=== PATIENT | female | born 1995 | race Caucasian/White ===

== ENCOUNTER 2017-11-25 10:53 | Emergency (ER) | payer MEDICAID, OTHER ==
[~2017-11-25] VITALS: Ht 165.1 cm; Wt 97.0 kg
[~2017-11-25 10:53] MED LIST: HYDR-3534 PO
[2017-11-25 11:17] VITALS: BP 139/72; PULSE 115; RESP 18; TEMP 98.6; O2SAT 98
[2017-11-25] MEDS ORDERED: KETOROLAC TROMETHAMINE 60 MG/2 ML (IM) VIAL IM ONE (11:45)
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
[2017-11-25] MEDS ORDERED: CYCL10TA PO (12:12)
[2017-11-25] MEDS ORDERED: TRAM50 PO (12:12)
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
== END 2017-11-25 13:31 | disposition home or self-care (01) ==
LOC: NEPD 10:53
DX: S16.1XXA Strain of muscle, fascia and tendon at neck level, initial encounter (principal); S39.012A Strain of muscle, fascia and tendon of lower back, initial encounter; V89.2XXA Person injured in unspecified motor-vehicle accident, traffic, initial encounter
CPT/HCPCS: 72125; 72128; 72131; 96372; 99283; J1885

== ENCOUNTER 2017-11-27 10:36 | Emergency (ER) | payer MEDICAID, OTHER ==
[~2017-11-27] VITALS: Ht 165.1 cm; Wt 98.0 kg
[~2017-11-27 10:36] MED LIST changes: +CYCL10TA PO; +TRAM50 PO
[2017-11-27 11:00] VITALS: BP 135/71; PULSE 74; RESP 16; TEMP 98.1; O2SAT 100
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
[2017-11-27 12:12] VITALS: BP 123/73; PULSE 74; RESP 16; O2SAT 100
[2017-11-27] MEDS ORDERED: KETOROLAC TROMETHAMINE 60 MG/2 ML (IM) VIAL IM ONE (12:15)
[2017-11-27 12:32] VITALS: BP 114/48; PULSE 71; RESP 16; O2SAT 98
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
[2017-11-27] MEDS ORDERED: ZOFR4TAB PO (13:01)
[2017-11-27] MEDS ORDERED: TRAM50 PO (13:01)
[2017-11-27] MEDS ORDERED: CYCL10TA PO (13:01)
== END 2017-11-27 13:15 | disposition home or self-care (01) ==
LOC: PHED 10:36
DX: M79.1 Myalgia (principal); R11.0 Nausea; F17.290 Nicotine dependence, other tobacco product, uncomplicated; V49.50XD Passenger injured in collision with unspecified motor vehicles in traffic accident, subsequent encounter
CPT/HCPCS: 71045; 96372; 99283; J1885